=== PATIENT | male | born 1980 | race Caucasian/White ===

== ENCOUNTER 2019-07-02 15:05 | Emergency (ER) | payer SELFPAY ==
[~2019-07-02] VITALS: Ht 180.3 cm; Wt 90.7 kg
[2019-07-02] MEDS: KETOROLAC TROMETHAMINE 30 MG INJ IM ONE (15:50)
[2019-07-02] MEDS ORDERED: KETOROLAC TROMETHAMINE 30 MG INJ ONE (15:50)
--- NOTE | 2019-07-02 16:20 | NUR ---
Patient discharged to home in stable conditon with family. Written and verbal after care instructions given. Patient verbalizes understanding of instructions. Stressed follow up with pmd/ortho.
== END 2019-07-02 16:22 | disposition home or self-care (01) ==
LOC: ER 15:05
DX: S52.601A Unspecified fracture of lower end of right ulna, initial encounter for closed fracture (principal); F17.290 Nicotine dependence, other tobacco product, uncomplicated; W22.8XXA Striking against or struck by other objects, initial encounter; Y93.89 Activity, other specified; Y92.89 Other specified places as the place of occurrence of the external cause; Y99.8 Other external cause status
CPT/HCPCS: 29125; 73080; 73090; 73110; 96372; 99283; 99406; J1885; A4663